=== PATIENT | female | born 1965 | race Caucasian/White ===

== ENCOUNTER 2018-11-06 16:36 | Emergency (ER) | payer SELFPAY ==
[2018-11-06] MEDS: KETOROLAC 30 MG INJ IM (19:12)
== END 2018-11-06 20:26 | disposition home or self-care (01) ==
LOC: FTE 16:36
DX: M23.91 Unspecified internal derangement of right knee (principal)
CPT/HCPCS: 73562; 73610-RT; 96372; 99284-25